=== PATIENT | female | born 2000 | race Caucasian/White ===

== ENCOUNTER 2021-06-04 07:31 | Outpatient (CLI) | payer OTHER, SELFPAY ==
--- NOTE | ~2021-06-04 | US_ITS ---
EXAMINATION: US right upper quadrant EXAM DATE: 06/04/2021 08:09 INDICATION: R10.13 - Epigastric pain TECHNIQUE: Multiple grayscale and Doppler images of the abdomen right upper quadrant were obtained (b y a technologist who performed the scan) and subsequently reviewed. There is no prior study for maddi mendoza. FINDINGS: The pancreatic head and body are normal in appearance. The pancreatic tail is not visualized. The l iver has normal echogenicity and contour. There are no focal liver lesions identified. There is no evidence of intrahepatic biliary duct dilation. Portal venous flow was seen in the hepatopedal, nor mal direction and has normal Doppler waveform. No right-sided hydronephrosis. Common bile duct measures 3 mm, which is normal. The gallbladder wall is normal in thickness, with ex pected amount of distention. No sonographic evidence of pericholecystic fluid. There is no cholelit hiases. Technologist performing exam reports patient did not demonstrate sonographic Salazar's sign. Please note that this sign is less reliable in patients who have received pain medication. IMPRESSION: 1. Unremarkable abdominal ultrasound exam. Reviewed, dictated and finalized at location B. TING MACHINE OPERATOR
== END 2021-06-04 07:32 | disposition home or self-care (01) ==
LOC: ANHIMG 07:36
PROVIDERS: PCP Internal Medicine; Visit Provider Physician Assistant
DX: R10.13 Epigastric pain (principal)
CPT/HCPCS: 76705

== ENCOUNTER 2021-10-18 16:38 | Outpatient (CLI) | payer OTHER, SELFPAY ==
[2021-10-18 17:29] LABS: Appearance Urine Clear (Clear); Bilirubin Urine Negative (Negative); Blood Urine Negative (Negative); Color Urine Yellow (Yellow); Glucose Urine UA Negative (Negative); Ketones Urine Negative (Negative); Leukocyte Esterase Ur Trace LEU/UL (NEGATIVE); Nitrate Urine Positive (Negative); Protein Urine Negative (Negative); Specific Grav Ur 1.015 (1.001-1.035); Urobilinogen Urine 0.2 mg/dL (<2.0); pH Urine 7.5 (5.0-9.0)
[2021-10-18 17:34] LABS: Bacteria Urine Trace /hpf; Mucus Urine Rare /lpf; RBC Urine 0-2 /hpf (0-2); Squamous Epithelial Cell Urine Few /hpf (Few)
[2021-10-18 17:35] LABS: Add Urine Microscopic? YES
== END 2021-10-18 16:39 | disposition home or self-care (01) ==
LOC: ANHLAB 16:41
PROVIDERS: PCP Internal Medicine; Visit Provider Physician Assistant
DX: R30.0 Dysuria (principal)
CPT/HCPCS: 81001; 87077; 87086; 87186

== ENCOUNTER → 2022-06-22 10:55 | Outpatient (CLI) | payer OTHER, SELFPAY ==
--- NOTE | ~2022-06-22 | US_ITS ---
Pelvic ultrasound. Clinical History: Pelvic pain Technique: Realtime transabdominal and transvaginal scanning of the pelvis was performed. Color flow Doppler and Doppler spectral analysis were performed. Findings: The uterus is anteverted. The endometrial stripe has a thickness of 3 mm. No focal mass is identified. The right ovary is not seen. No significant right ovarian or adnexal mass is seen. The left ovary measures 1.5 x 0.9 x 1.0 cm. No significant left ovarian or adnexal mass is seen. There is no evidence of free fluid in the cul de sac. Impression: Uterus and left ovary are unremarkable. Right ovary not seen. Reviewed, dictated and finalized at location . BORING CREW CHIEF Impression: Uterus and left ovary are unremarkable. Right ovary not seen.
== END ==
PROVIDERS: PCP Physician Assistant; Visit Provider Nurse Practitioner
DX: R10.2 Pelvic and perineal pain (principal)
CPT/HCPCS: 76830

== ENCOUNTER 2023-01-27 15:46 | Outpatient (CLI) | payer OTHER, SELFPAY ==
--- NOTE | ~2023-01-27 | US_ITS ---
EXAMINATION: US OB <= 14 weeks fetus DATE: 01/27/2023 16:04 INDICATION: First trimester dating and viability assessment. TECHNIQUE: Real-time pelvic transabdominal and transvaginal ultrasound was performed. COMPARISON: None. FINDINGS: The uterus measures 9.2 x 7.3 x 5.4 cm. There is an intrauterine gestational sac. A yolk sa c is identified. heart motion is identified measuring 183 beats per minute (bpm) by M-mode Dopp ler. The crown rump length measures 2.6 cm, which correlates with an estimated gestational age of 9 weeks and 3 day(s) (+/-) 6 day(s). The ovaries are not visualized however no adnexal abnormality is seen. There is no free fluid in the pelvis. IMPRESSION: 1. Live intrauterine with an estimated gestational age of 9 weeks and 3 day(s) (+/-) 6 day( s) and an estimated delivery date of 08/29/2023. Reviewed, dictated and finalized at location F. IMPRESSION: 1. Live intrauterine with an estimated gestational age of 9 weeks and 3 day(s) (+/-) 6 day(s) and an estimated delivery date of 08/29/2023.
== END 2023-01-27 15:47 ==
LOC: GOSHIMG 15:49
PROVIDERS: PCP Physician Assistant; Visit Provider Advanced Practice Midwife
DX: O36.80X0 Pregnancy with inconclusive fetal viability, not applicable or unspecified (principal); Z3A.09 9 weeks gestation of pregnancy
CPT/HCPCS: 76801

== ENCOUNTER 2023-04-04 15:22 | Outpatient (CLI) | payer OTHER, SELFPAY ==
--- NOTE | ~2023-04-04 | US_ITS ---
EXAMINATION: US OB /maternal detail DATE: 04/04/2023 16:01 INDICATION: Second trimester anatomic survey TECHNIQUE: Real-time ultrasound of the pelvis was performed. COMPARISON: None. FINDINGS: There is a single living fetus in breech presentation. The placenta is anterior and 4.7 cm from the i nternal cervical os. The measured cervical length is 2.8 cm. heart rate is 157 beats per minute (bpm). cardiac activity and movement are noted. The amniotic fluid index is subjectivel y normal. The following anatomy was identified as normal: 4 chamber heart 3 vessel cord cord insertion kidneys urinary bladder stomach spine diaphragm ventricles cisterna magna cerebellum The following biometric data were obtained: Biparietal diameter (BPD): 4.3 cm; head circumference (HC): 16.2 cm; abdominal circumference (AC): 14 .4 cm; femur length (FL): 3.2 cm. These measurements are concordant. Estimated weight is 307 g +/- 46 g, which correlates with the 84th percentile when 08/29/2023 is used as estimated date of delivery. As single measurements, these parameters are each equal to the following estimated gestational ages w ith ranges of +/- 2 standard deviations: BPD: 19 weeks 0 days +/- 1 weeks 5 days. HC: 19 weeks 0 days +/- 1 weeks 3 days. AC: 19 weeks 5 days +/- 2 weeks 0 days. FL: 19 weeks 6 days +/- 1 weeks 6 days. estimated gestational age based solely on measurements from this exam is 19 weeks 3 days +/- 1 weeks 3 days. IMPRESSION: 1. Single living fetus in breech presentation. 2. Estimated weight is 307 g +/- 46 g, which correlates with the 84th percentile when 08/29/2023 is used as estimated date of delivery. Reviewed, dictated and finalized at location F. OR PROJECT COORDINATOR IMPRESSION: 1. Single living fetus in breech presentation. 2. Estimated weight is 307 g +/- 46 g, which correlates with the 84th per centile when 08/29/2023 is used as estimated date of delivery.
== END 2023-04-04 15:23 ==
LOC: GOSHIMG 15:24
PROVIDERS: PCP Physician Assistant; Visit Provider Advanced Practice Midwife
DX: Z36.9 Encounter for antenatal screening, unspecified (principal); Z3A.19 19 weeks gestation of pregnancy
CPT/HCPCS: 76805

== ENCOUNTER 2023-05-23 20:03 | Observation (INO) | payer OTHER, SELFPAY ==
[2023-05-23] VITALS (11 sets, daily range): BP systolic 114–115; BP diastolic 65–68; PULSE 118–129; RESP 16; TEMP 36.9; O2SAT 97; BMI 22.8
--- NOTE | 2023-05-23 20:58 | PC.NURSE ---
Called Dr. Capone to update on pt, tracing, body aches, chills, decreased movement, and fatigue. Orders received to send pt to the ER to have testing done and start a D5LR fluid bolus.
--- NOTE | 2023-05-23 21:07 | PC.NURSE ---
Report given to Cristy Garland, ROSALIO in the Emergency Department. Dr. Capone transferring pt to ER after being assessed obstetrically due to illness symptoms.
--- NOTE | 2023-05-23 21:17 | OBADM ---
This patient, Juliane Carlin, admitted to the OB room OB Post 117 for observation. Patient/family oriented to hospital policies and general routines including ID bracelet, bed and alarms, visiting hours, pain management, procedures, bathroom and other care routines, personal items, smoking policy, room service/diet, and visiting hours. Patient/Family are encouraged to report perceived risks to care and to ask questions if they do not understand what they are told or what they should do.
--- NOTE | 2023-05-25 07:53 | PM.OBTRLD ---
OB - Triage/Final Diagnosis Visit Information Reason for evaluation: decreased movement and other ( COVID) Comments/Additional reasons for admission: I have assessed the risk for this patient, Juliane Carlin, and determined that she would benefit from observation care.
== END 2023-05-23 21:41 | disposition other institution (70) ==
PROVIDERS: Admitting Provider Obstetrics & Gynecology Gynecology; PCP Physician Assistant; Visit Provider Obstetrics & Gynecology Gynecology
DX: O36.8120 Decreased fetal movements, second trimester, not applicable or unspecified (principal); Z3A.26 26 weeks gestation of pregnancy
CPT/HCPCS: 59025; G0378; G0379

== ENCOUNTER 2023-05-23 21:43 | Emergency (ER) | payer OTHER, SELFPAY ==
[2023-05-23 21:57] VITALS: BP 121/72; PULSE 124; RESP 20; TEMP 36.5; O2SAT 98
[2023-05-23] MEDS: DEXTROSE 5%/LACTATED RINGERS 1,000 ML 999 ML IV CONT (23:14)
[2023-05-23] MEDS: METOCLOPRAMIDE HCL INJ 10 MG/2 ML VIAL IV PUSH (23:14)
[2023-05-23 23:21] LABS: Hemoglobin 10.4 g/dL (12.0-15.0); Mean Corpuscular HGB Conc 32.5 g/dl (32-36); Mean Corpuscular Hemoglobin 30.8 pg (26-34); Mean Corpuscular Volume 94.7 fl (80-100); Mean Platelet Volume 9.9 fl (7.4-10.4); Platelet Count Result 195 k/mm3 (150-375); Red Blood Count 3.38 M/mm3 (4.2-5.4); Red Cell Distribution Width 12.4 % (11.5-14.5); White Blood Count 7.8 K/mm3 (4.5-10.0)
[2023-05-23 23:31] LABS: Alanine Aminotransferase 30 U/L (6-35); Albumin Level 3.5 g/dL (3.5-5.1); Alkaline Phosphatase 62 U/L (38-126); Anion Gap 8 mmol/L (8-16); Aspartate Amino Transferase 45 U/L (14-36); Bilirubin,Total 0.3 mg/dL (0.2-1.3); Blood Urea Nitrogen 5 mg/dL (7-17); Calcium 8.5 mg/dL (8.4-10.2); Carbon Dioxide 23 mmol/L (22-30); Chloride 103 mmol/L (98-107); Estimated CRCL calculation 146 ml/min; Estimated Glomerular Filt Rate > 60; Glucose 82 mg/dL (65-110); Lipase 30 U/L (23-300); Potassium 3.7 mmol/L (3.4-5.0); Sodium 134 mmol/L (137-145)
[2023-05-23 23:34] VITALS: BP 105/56; PULSE 120; RESP 17; O2SAT 98
[2023-05-23 23:46] LABS: Appearance Urine Clear (Clear); Bilirubin Urine Negative (Negative); Blood Urine Negative (Negative); Color Urine Yellow (Yellow); Glucose Urine UA Negative (Negative); Ketones Urine Negative (Negative); Leukocyte Esterase Ur Negative LEU/UL (Negative); Nitrate Urine Negative (Negative); Protein Urine Negative (Negative); Urobilinogen Urine 0.2 mg/dL (<2.0); pH Urine 5.5 (5.0-9.0)
[2023-05-23 23:54] LABS: Band Neutrophils Percent 9 % (0-6); Lymphocytes Absolute Manual 0.39 K/mm3 (1.1-4.5); Lymphocytes Percent Manual 5 % (18-44); Monocytes Absolute Manual 0.39 K/mm3 (0.1-0.90); Monocytes Percent Manual 5 % (3-9); Neutrophils Absolute Manual 7.02 K/mm3 (1.7-7.2); Neutrophils Percent Manual 81 % (46-73); Platelet Estimate Adequate (Adequate); Total Cells Counted 100
[2023-05-23 23:55] LABS: Large Platelets Present; Schistocytes None Seen (NORMAL)
[2023-05-23 23:56] LABS: Add Urine Microscopic? NO
[2023-05-23 23:57] LABS: Influenza A QL RT-PCR Negative (Negative); Influenza B QL RT-PCR Negative (Negative); RSV RNA, RT-PCR Negative (Negative); SARS-CoV-2 RNA PCR Positive (Negative)
[2023-05-24] MEDS: SODIUM CHLORIDE 0.9% IV 1,000 ML 999 ML IV CONT (00:23)
[2023-05-24] MEDS: METOCLOPRAMIDE HCL INJ 10 MG/2 ML VIAL IV PUSH (00:25)
[2023-05-24 00:27] VITALS: BP 117/79; PULSE 133
[2023-05-24 00:28] VITALS: BP 106/66; BP 117/72; PULSE 130; PULSE 135
--- NOTE | 2023-05-24 01:09 | ECG_ITS ---
Measurements Intervals [place] Rate: 128 P: 53 AK: 151 QRS: 38 QRSD: 98 T: 30 QT: 279 QTc: 408 Interpretive Statements SINUS TACHYCARDIA INCOMPLETE RIGHT BUNDLE BRANCH BLOCK ST-T WAVE ABNORMALITY IN ANTEROLATERAL LEADS- CONSIDER ISCHEMIA ABNORMAL ECG BASELINE ARTIFACT- I, III, V6 NO PREVIOUS ECG AVAILABLE FOR COMPARISON Electronically Signed On 05-24-2023 5:34:05 [employer] CRM DEVELOPER by Dk Rogers D.O.
--- NOTE | 2023-05-24 01:31 | ED.GENADULT ---
HPI - General Adult General Chief complaint: Nausea/Vomiting/Diarrhea Stated complaint: flu symptoms Time Seen by Provider: 05/23/23 22:49 History of Present Illness HPI narrative: Patient is a 22-year-old female who presents emergency department with chief complaint of nausea and vomiting. Patient is approximately 26 weeks was seen over at OB I reports that she has had a difficult time keeping any fluids down Related Data Home Medications Medication Instructions Recorded Confirmed fexofenadine-pseudoephedrine ER 1 tablet PO DAILY 03/26/19 04/01/22 180 mg-240 mg tablet,ext.release 24 hr (Shea-D 24 Hour) levonorgestrel-ethinyl estradiol 1 tablet PO DAILY 03/26/19 04/01/22 0.1 mg-20 mcg tablet (Vienva) cholecalciferol (vitamin D3) 50 50 mcg PO DAILY 11/04/20 04/01/22 mcg (2,000 unit) capsule escitalopram oxalate 10 mg tablet 10 mg PO DAILY 11/04/20 04/01/22 (Lexapro) Allergies Allergy/AdvReac Type Severity Reaction Status Date / Time No Known Allergies Allergy Verified 05/23/23 22:02 Review of Systems Review of Systems: A 10 system review of systems was completed on the patient and is negative except for what is stated in the HPI. Nursing and ancillary documentation was reviewed. [facility] Family History Family History Mother Patient's mother is in good health Father Patient's father is in good health Social History Social History Smoking status: Never smoker Second hand tobacco smoke exposure: No Alcohol intake: never Lack of Transportation: No Lack of Food: Never True Current Housing: I Have Housing Concerned About Future Housing: No Difficulty Paying Gas/Electric Bills: No Difficulty Paying for Meds: No Currently Unemployed: No Education: Associate Degree Difficulty w/ Childcare or Family Care: No Exam Narrative: GENERAL: Well-appearing, well-nourished, and in no acute distress. HEAD: Normocephalic, atraumatic. EYES: PERRLA and EOMI. ENT: Nares clear, no rhinorrhea or epistaxis. Mucous membranes moist. NECK: Supple. CHEST: Clear to auscultation. No respiratory distress. HEART: Tachycardic rate and rhythm. No murmur heard. Normal peripheral pulses. ABDOMEN: Soft, nontender, nondistended, normal active bowel sounds. EXTREMITIES: Normal range of motion. No edema. SKIN: Warm, dry, no rash. NEURO: No focal deficits. Alert and oriented x3. PSYCH: Normal mood and affect. Course Vital Signs Vital signs: Vital Signs Temperature 36.5 C 05/23/23 21:57 Pulse Rate 124 H 05/23/23 21:57 Respiratory Rate 20 05/23/23 21:57 Blood Pressure 121/72 05/23/23 21:57 Pulse Oximetry 98 05/23/23 21:57 Oxygen Delivery Room Air 05/23/23 21:57 Temperature 36.5 C 05/23/23 21:57 Pulse Rate 135 H 05/24/23 00:28 Respiratory Rate 17 05/23/23 23:34 Blood Pressure 106/66 05/24/23 00:28 Pulse Oximetry 98 05/23/23 23:34 Oxygen Delivery Room Air 05/23/23 21:57 Medical Decision Making MDM Narrative Medical decision making narrative: Differential diagnosis includes viral syndrome, UTI, dehydration, hyperemesis Patient received fluid hydration in the emergency department and underwent laboratory CBC was within normal limits, CMP was within normal limits. Urinalysis showed no evidence UTI or protein in the urine. Patient was positive for COVID-19 Patient was offered Paxil 0 bid since she is showing more significant symptoms of COVID-19 after discussion with OBGYN. Vital Signs Vital Signs: Vital Signs Temperature 36.5 C 05/23/23 21:57 Pulse Rate 124 H 05/23/23 21:57 Respiratory Rate 20 05/23/23 21:57 Blood Pressure 121/72 05/23/23 21:57 Pulse Oximetry 98 05/23/23 21:57 Oxygen Delivery Room Air 05/23/23 21:57 Temperature 36.5 C 05/23/23 21:57 Pulse Rate 135 H
[2023-05-24 01:46] VITALS: BP 105/63; PULSE 130; RESP 14; O2SAT 99
== END 2023-05-24 01:47 | disposition home or self-care (01) ==
PROVIDERS: Emergency Provider Emergency Medicine; PCP Physician Assistant
DX: U07.1 COVID-19 (principal); R11.2 Nausea with vomiting, unspecified
CPT/HCPCS: 36415; 59025; 80053; 81003; 83690; 85025; 87637; 93005; 96361; 96374; 99284; G0378; G0379; J2765; J7030; J7121

== ENCOUNTER 2023-06-17 07:57 | Outpatient (CLI) | payer OTHER, SELFPAY ==
--- NOTE | 2023-06-17 07:58 | ECG_ITS ---
Measurements Intervals [place] Rate: 80 P: 10 NM: 135 QRS: 36 QRSD: 97 T: 26 QT: 347 QTc: 401 Interpretive Statements SINUS RHYTHM WITH SINUS ARRHYTHMIA Electronically Signed On 06-17-2023 12:35:22 CHIEF CONTRACT OFFICER by Torrey Gilbert M.D.
== END 2023-06-17 07:58 | disposition home or self-care (01) ==
LOC: ANHCARD 07:58
PROVIDERS: PCP Physician Assistant; Visit Provider Physician Assistant
DX: R94.31 Abnormal electrocardiogram [ECG] [EKG] (principal)
CPT/HCPCS: 93005

== ENCOUNTER 2023-06-29 15:38 | Outpatient (CLI) | payer OTHER, SELFPAY ==
--- NOTE | ~2023-06-29 | US_ITS ---
EXAMINATION: US OB follow up DATE: 06/29/2023 15:56 INDICATION: COVID during TECHNIQUE: Real-time ultrasound of the pelvis was performed. The interpreting radiologist was not pre sent for the study. COMPARISON: None. FINDINGS: There is a single living fetus in vertex presentation. The placenta is anterior and not low-lying. F etal heart rate is 136 beats per minute (bpm). The amniotic fluid index is 14.2 cm, which is normal (5th%-95%: 8.8-23.8 cm at 31 weeks estimated gestational age). The following biometric data were obtained: BPD: 8.1 cm -> 32 weeks 5 days Head circumference: 29.5 cm -> 32 weeks 4 days Abdominal circumference: 28.4 cm -> 32 weeks 3 days Femur length: 6.0 cm -> 31 weeks 3 days These measurements are concordant. Head circumference to abdominal circumference ratio: 1.04 (normal range 0.96-1.13). Estimated weight: 1913 g (+/-) 287 g or 4 lbs. 3 oz. (+/-) 10 oz. IMPRESSION: 1. Single living fetus in vertex presentation with heart rate of 136 bpm. 2. Normal amniotic fluid index of 14.2 cm. 3. Estimated weight is 68th percentile by Hadlock criteria when 08/29/2023 is used as the estima fabián date of delivery (RICA). Please correlate with clinical information or earlier ultrasounds for mos t accurate RICA. Reviewed, dictated and finalized at location A. KER OPERATOR IMPRESSION: 1. Single living fetus in vertex presentation with heart rate of 136 bpm. 2. Normal amniotic fluid index of 14.2 cm. 3. Estimated weight is 68th percentile by Hadlock criteria when 08/29/2023 is used as the estimated date of delivery (RICA). Please correlate with clinica l information or earlier ultrasounds for most accurate RICA.
== END 2023-06-29 15:39 ==
LOC: MICIMG 15:39
PROVIDERS: PCP Advanced Practice Midwife; Visit Provider Advanced Practice Midwife
DX: O98.519 Other viral diseases complicating pregnancy, unspecified trimester (principal); Z3A.00 Weeks of gestation of pregnancy not specified
CPT/HCPCS: 76816

== ENCOUNTER 2023-08-22 18:53 | Inpatient (IN) | payer OTHER, SELFPAY ==
--- NOTE | 2023-08-22 18:53 | LDADM ---
This patient, Juliane Carlin, was admitted to Labor/Delivery/Recovery 105 on 08/22/23 at 18:53. Plans for labor, pain management and were discussed with patient. Patient/family oriented to hospital policies and general routines including ID bracelet, bed and alarms, visiting hours, pain management, procedures, bathroom and other care routines, personal items, smoking policy, room service/diet and guest tray routines, infant security routines, and visiting hours. Patient/Family are encouraged to report perceived risks to care and to ask questions if they do not understand what they are told or what they should do. See OBIX for further documentation.
[2023-08-22 19:09] VITALS: BP 138/89; PULSE 104
[2023-08-22 19:16] VITALS: BP 129/77; PULSE 103
[2023-08-22 19:22] VITALS: TEMP 36.9
[2023-08-22 19:22] LABS: Basophils Percent Auto 0.4 % (0.2-1.2); Eosinophils Absolute Auto 0.2 K/mm3 (0-0.3); Eosinophils Percent Auto 1.9 % (0-4.4); Hematocrit 35.4 % (37.0-47.0); Hemoglobin 11.8 g/dL (12.0-15.0); Immature Granulocyte Absolute 0.05 K/mm3 (0.00-0.031); Immature Granulocyte Percent A 0.5 % (0-0.5); Lymphocytes Absolute Auto 2.36 K/mm3 (0.9-3.2); Lymphocytes Percent Auto 21.5 % (18.3-44.2); Mean Corpuscular HGB Conc 33.3 g/dl (32-36); Mean Corpuscular Volume 90.1 fl (80-100); Mean Platelet Volume 11.1 fl (7.4-10.4); Monocytes Absolute Auto 0.7 K/mm3 (0.1-0.6); Monocytes Percent Auto 6.5 % (2.6-8.5); Neutrophils Absolute Auto 7.6 K/mm3 (1.3-6.7); Neutrophils Percent Auto 69.2 % (45.5-73.1); Platelet Count Result 228 k/mm3 (150-375); Red Blood Count 3.93 M/mm3 (4.2-5.4); Red Cell Distribution Width 12.4 % (11.5-14.5)
[2023-08-22 19:31] VITALS: BP 134/81; PULSE 105
[2023-08-22 19:37] VITALS: BMI 25.7
[2023-08-22 19:46] VITALS: BP 129/89; PULSE 102
[2023-08-22 19:52] LABS: Anisocytosis 1+; Platelet Estimate Adequate (Adequate); Schistocytes None Seen
[2023-08-23] VITALS (92 sets, daily range): BP systolic 90–159; BP diastolic 54–128; PULSE 25–280; RESP 16; TEMP 36.2–37.6; O2SAT 83–100
[2023-08-23] MEDS: LACTATED RINGERS 1,000 ML 125 ML IV CONT ×2 (00:17→04:32)
[2023-08-23] MEDS: OXYTOCIN 30 UNITS/NS 500 ML 30 UNITS/500 ML BAG IV CONT (00:17)
[2023-08-23] MEDS: fentaNYL CITRATE INJ (*CRX) 100 MCG/2 ML VIAL 50 MCG IV PUSH ×2 (01:03→03:17)
[2023-08-23] MEDS: ONDANSETRON INJ 4 MG/2 ML VIAL IV PUSH (04:31)
[2023-08-23] MEDS: fentaNYL CITRATE INJ (*CRX) 100 MCG/2 ML VIAL IV PUSH (04:31)
--- NOTE | 2023-08-23 05:17 | WPDANESEPP ---
Anes - Eval Pre Procedure Procedure: labor epidural Date/Time: 08/23/23 05:17 Preop Diagnosis: pain during labor Pre Op Diagnosis: IOL Patient Data Age: 22 Gender: F Height: 1.6 m Weight: 66 kg Last Vital Signs Temp 36.4 C L 08/23/23 04:09 Pulse 144 H 08/23/23 05:15 BP 112/92 H 08/23/23 05:17 Pulse Ox 100 08/23/23 05:13 O2 Del Method Room Air 08/22/23 19:37 Allergies Allergy/AdvReac Type Severity Reaction Status Date / Time No Known Allergies Allergy Verified 08/02/23 14:16 Home Medications Medication Instructions Recorded Confirmed Type cholecalciferol (vitamin D3) 50 50 mcg PO DAILY 11/04/20 08/22/23 History mcg (2,000 unit) capsule escitalopram oxalate 10 mg tablet 10 mg PO DAILY 11/04/20 08/22/23 History (Lexapro) pantoprazole 20 mg tablet,delayed 20 mg PO QAM #90 tabs 06/06/23 08/22/23 Rx release [id number] fum 28 1 pkg PO DAILY 06/06/23 08/22/23 History mg-folic acid 800 mcg-dha 200 mg oral pack ( + DHA) aspirin 81 mg tablet 81 mg PO DAILY 08/02/23 08/22/23 History Laboratory Tests 08/22/23 19:17 WBC 11.0 H K/mm3 (4.5-10.0) RBC 3.93 L M/mm3 (4.2-5.4) Hgb 11.8 L g/dL (12.0-15.0) Hct 35.4 L % (37.0-47.0) MCV 90.1 fl (80-100) MCH 30.0 pg (26-34) MCHC 33.3 g/dl (32-36) RDW 12.4 % (11.5-14.5) Plt Count 228 k/mm3 (150-375) MPV 11.1 H fl (7.4-10.4) Immature Gran % (Auto) 0.5 % (0-0.5) Neut % (Auto) 69.2 % (45.5-73.1) Lymph % (Auto) 21.5 % (18.3-44.2) [place] % (Auto) 6.5 % (2.6-8.5) Eos % (Auto) 1.9 % (0-4.4) Baso % (Auto) 0.4 % (0.2-1.2) Lymph # (Auto) 2.36 K/mm3 (0.9-3.2) [place] # (Auto) 0.7 H K/mm3 (0.1-0.6) Eos # (Auto) 0.2 K/mm3 (0-0.3) Baso # (Auto) 0.0 K/mm3 (0.0-0.1) Abs Immat Gran (auto) 0.05 H K/mm3 (0.00-0.031) Absolute Neuts (auto) 7.6 H K/mm3 (1.3-6.7) Absolute Nucleated RBC 0.000 K/mm3 (0.0-0.012) Nucleated RBC % 0.0 % (0.0-0.2) Platelet Estimate Adequate (Adequate) Anisocytosis 1+ Schistocytes None seen RPR Pending Blood Type O Positive Antibody Screen Negative Patient hx anesthesia problems: none Family hx anesthesia problems: none Results Review: All pre-operative results and documents have been reviewed as part of the pre-operative evaluation. [facility], [facility] Past Medical History Medical History (Updated 08/23/23 @ 05:18 by Cristal Carrillo CRNA) IUP (intrauterine ), incidental Scoliosis Family History Family History (Updated 08/02/23 @ 14:29 by Kim Hartley RN) Mother Patient's mother is in good health Father Patient's father is in good health Diabetes mellitus Hypertension Grandparent Hypertension Grandparent Hypertension Grandparent Acute kidney failure Cerebrovascular accident Chronic obstructive pulmonary disease Social History Social History Smoking status: Never smoker Second hand tobacco smoke exposure: No Alcohol intake: never Substance use: never Do You Feel Safe in your Home?: Yes Lack of Transportation: No Lack of Food: Never True Current Housing: I Have Housing Concerned About Future Housing: No Difficulty Paying Gas/Electric Bills: No Difficulty Paying for Meds: No Currently Unemployed: No Education: Associate Degree Difficulty w/ Childcare or Family Care: No Spiritual care concerns: No Exam Day of Procedure 08/23/23 05:17
--- NOTE | 2023-08-23 07:38 | WPDOBADMIT ---
Obstetrics - Admit Note Admission Note: record reviewed. No pertinent additions to the history and/or any subsequent changes in the physical findings that are not consistent with the expected course of the were found. Additions to the history and/or subsequent changes in the physical findings follow. Pt arrived for IOL and was found to have spontaneous contractions. Her cervix made 1 cm of change but was unchanged at her next exam. Pitocin was then started.
--- NOTE | 2023-08-23 07:40 | PM.OBPNLAB ---
Pain Control Date/time seen: 08/23/23 07:25 CNM called at 0535 for update. Pt was last 5 cm per RN exam, having occasional variable decelerations, but otherwise overall reassuring tracing. SROM overnight of clear fluid. CNM at bedside at 0725. Pt feeling intermittent rectal pressure. Pain control: tolerating well and epidural Pelvic Exam Dilation (cm): 10 Effacement (%): 100 station: +2 Amniotic membrane status: Ruptured Contractions Monitor mode: External Contraction frequency: 3 (2-3) Contraction pattern: Regular Contraction phase: Contraction Contraction intensity: Strong/Firm Status status: Category ll Assessment and Plan Assessment: active labor Plan: continuous present management Comments: Pt found to be complete. Plan to begin pushing with ctx. Dr. Capone updated. Anticipate vaginal .
--- NOTE | 2023-08-23 07:43 | PM.OBPRVD ---
OB - Vaginal Delivery Note Procedure Delivery date: 08/23/23 Events: Elective Induction of Labor Induction method: Per Pitocin Protocol Delivery monitor: External FHT and External Uterine Route of delivery: Episiotomy description: None Laceration Description: Other (right hymenal ring. superficial) Delivery repair: vicryl Specimen: Yes (placenta) Quantitative Blood Loss (ml): 125 Anesthesia type: Epidural Disposition: Floor Complications: No immediate complications Narrative: Juliane arrived for induction of labor. She was found to have spontaneous contractions and made cervical change to 3 cm. After that there was no further cervical change Pitocin was started. She progressed to complete dilation and began pushing with contractions. She brought the head to complete crown and delivered it over intact perineum. There was minimal restitution at this point. There was gradual delivery of the anterior followed by the posterior shoulder. The 's body was gradually delivered and placed on the maternal abdomen and care was transferred to the nursery staff. After 1 minute of life, the cord was doubly clamped and cut. Cord blood, cord gases, and cord segment were obtained. The placenta delivered spontaneously and was found to have a small accessory lobe. otherwise appeared grossly intact. All delivery counts correct. There was excellent uterine tone. Mother may be skin to skin and delivery room. Baby Date of : 08/23/23 Time of : 08:11 Weeks of gestation at delivery: 39 Infant gender: Male Weight (pounds): 8 Weight (ounces): 3 presentation: vertex position: Right Occiput Anterior Placenta delivery description: Spontaneous and Abnormal Configuration (accessory lobe) Cord Vessel Description: 3 Vessels and Delayed Cord Clamping score one minute: 9 score five minutes: 9
--- NOTE | 2023-08-23 07:45 | PM.OBDSVD ---
DS: Admitting Diagnosis Discharge Date 08/24/[address] Logan Whittington <Nancy Tirado CNM - Last Filed: 08/29/23 07:34> 08/24/2023 <Aleks Whittington MD - Last Filed: 08/24/23 07:08> Admitting Diagnosis 22 y.o. at 39 weeks gestation IOL Anxiety Scoliosis Tachycardia Hx Covid infection in <Nancy Tirado CNM - Last Filed: 08/29/23 07:34> DS: Discharge Diagnosis Discharge Diagnosis (1) (normal spontaneous vaginal delivery): Code(s): O80 - Encounter for full-term uncomplicated delivery <aNncy Tirado CNM - Last Filed: 08/29/23 07:34> Status: Acute <Nancy Tirado CNM - Last Filed: 08/29/23 07:34> OB - DS: Summary Hospital Course Hospital Course: Uncomplicated <Nancy Tirado CNM - Last Filed: 08/29/23 07:34> OB Procedures : Ultrasound <Nancy Tirado CNM - Last Filed: 08/29/23 07:34> OB Procedures Intrapartum: Spontaneous Vag Delivery <Nancy Tirado CNM - Last Filed: 08/29/23 07:34> OB Procedures: : None <Nancy Tirado CNM - Last Filed: 08/29/23 07:34> Peripartum Data Infant Delivery Method: Natural Vaginal <Nancy Tirado CNM - Last Filed: 08/29/23 07:34> Laceration Description: Other (hymenal ring) <Nancy Tirado CNM - Last Filed: 08/29/23 07:34> Episiotomy description: None <Nancy Tirado CNM - Last Filed: 08/29/23 07:34> complications: none <Nancy Tirado CNM - Last Filed: 08/29/23 07:34> Time Spent with Patient Time attestation: Total time spent providing and/or coordinating discharge services: <Nnacy Tirado CNM - Last Filed: 08/29/23 07:34> DS: Data Data Completed and Pending Labs on day of discharge: Labs from last 24 hours 08/22/23 19:17 WBC 11.0 H RBC 3.93 L Hgb 11.8 L Hct 35.4 L MCV 90.1 MCH 30.0 MCHC 33.3 RDW 12.4 Plt Count 228 MPV 11.1 H Immature Gran % (Auto) 0.5 Neut % (Auto) 69.2 Lymph % (Auto) 21.5 [place] % (Auto) 6.5 Eos % (Auto) 1.9 Baso % (Auto) 0.4 Lymph # (Auto) 2.36 [place] # (Auto) 0.7 H Eos # (Auto) 0.2 Baso # (Auto) 0.0 Abs Immat Gran (auto) 0.05 H Absolute Neuts (auto) 7.6 H Absolute Nucleated RBC 0.000 Nucleated RBC % 0.0 Platelet Estimate Adequate Anisocytosis 1+ Schistocytes None seen RPR Pending Blood Type O Positive Antibody Screen Negative <Nancy Tirado CNM - Last Filed: 08/29/23 07:34> Discharge Plan Discharge Attending physician on discharge: Anna Marie Capone <Nancy Tirado CNM - Last Filed: 08/29/23 07:34> Anna Marie Capone <Aleks Whittington MD - Last Filed: 08/24/23 07:08> Consulting providers: Nancy Tirado; Cristal Carrillo; Farhat Kate <Nancy Tirado CNM - Last Filed: 08/29/23 07:34> Discharging Clinician: Anna Marie Capone <Nancy Tirado CNM - Last Filed: 08/29/23 07:34> Anna Marie Capone <Aleks Whittington MD - Last Filed: 08/24/23 07:08> Patient Disposition: Home, Self-Care <Nancy Tirado CNM - Last Filed: 08/29/23 07:34> Activity: may shower and pelvic rest <Nancy Tirado CNM - Last Filed: 08/29/23 07:34> may shower and pelvic rest <Aleks Whittington MD - Last Filed: 08/24/23 07:08> Diet: as tolerated and regular <Nancy Tirado CNM - Last Filed: 08/29/23 07:34> as tolerated and regular <Aleks Whittington MD - Last Filed: 08/24/23 07:08> Wound Care Instructions: follow printed instructions <Nancy Tirado CNM - Last Filed: 08/29/23 07:34> follow printed instructions <Aleks Whittington MD - Last Filed: 08/24/23 07:08> Discharge Instructions: Education: Mom and Baby Guide Given to: Mother Follow-Up: Call your delivering provider's office for an appointment to be seen in: call doctor's office and make an appointment Mom and baby should come
[2023-08-23] MEDS: WITCH HAZEL 40 PADS 1 PAD TOPICAL (10:45)
[2023-08-23] MEDS: BENZOCAINE 20% AER SPR (*SP) 56 GM CAN 1 SPRAY TOPICAL (10:45)
[2023-08-23] MEDS: IBUPROFEN 600 MG TABLET PO ×2 (11:03→17:40)
[2023-08-23 14:40] LABS: Rapid Plasma Reagin Non-Reactive (NonReactive)
[2023-08-24 04:31] VITALS: BP 142/89; PULSE 80; RESP 20; TEMP 36.6; O2SAT 99
[2023-08-24 05:29] LABS: Hemoglobin 10.5 g/dL (12.0-15.0)
--- NOTE | 2023-08-24 06:57 | P.PNOB_ITS ---
OB - PN: Subj Subjective Date/time seen: 08/24/23 06:57 Patient comments: no complaints and pain well controlled baby status: doing well OB - PN: Obj Data Labs 08/24/23 03:56 Labs: Laboratory Results - last 24 hr 08/22/23 08/24/23 19:17 03:56 Hgb 10.5 L Hct 32.0 L RPR Non-reactive OB - PN A/P Plan day: 1 Plan: routine care Time Spent With Patient Time: Total time spent is greater than 50% in coordination of care (as documented) at patient's floor/unit and/or counseling patient: Time with patient: less than 15 minutes Exam Const: General: cooperative, healthy appearing and comfortable Nutritional Appearance: average body habitus Orientation/consciousness: oriented to person, oriented to place and oriented to time Resp: Effort & Inspection: normal respiratory effort Cardio: Rate: regular rate Rhythm: regular rhythm Heart sounds: S1 n ormal heart sound present and S2 normal heart sound present GI: Inspection: normal to inspection
[2023-08-24 07:50] VITALS: BP 137/96; PULSE 97; RESP 16; TEMP 36.8
[2023-08-24] MEDS: DOCUSATE SODIUM 100 MG CAPSULE PO (07:50)
[2023-08-24] MEDS: IBUPROFEN 600 MG TABLET PO (07:51)
--- NOTE | 2023-08-24 08:02 | WPDANLDPN2 ---
Anes-Prog Note L&D Date/Time: 08/24/23 08:02 Comfortable throughout: labor and delivery Neuraxial method: epidural Epidural/Spinal procedure site: clean & non-tender Neuro status: Neuro function grossly intact. Cardiovascular status: normal Respiratory status: normal Airway patency: baseline Mental status: baseline Post-Op hydration status: normal Vital Signs: Last Vital Signs Temp 36.6 C 08/24/23 04:31 Pulse 80 08/24/23 04:31 Resp 20 08/24/23 04:31 BP 142/89 H 08/24/23 04:31 Pulse Ox 99 08/24/23 04:31 O2 Del Method Room Air 08/23/23 19:00 Pain score (VAS): 2/10 I/O: Intake & Output 08/23/23 08/24/23 08/24/23 23:59 07:59 15:59 Intake Total 240 Balance 240 Post-procedural complaints: none Patient feedback: Patient satisfied with anesthetic care.
[2023-08-25 08:41] VITALS: BP 131/86; PULSE 71; RESP 18; TEMP 37; O2SAT 100
== END 2023-08-24 11:25 | disposition home or self-care (01) | DRG 807 ==
LOC: ANHLDR 08-23 07:46 → ANHOB2 08-24 07:06 → ANHLDR 08-25 08:29 → ANHOB2 08-25 08:29
PROVIDERS: Advanced Practice Midwife; Admitting Provider Obstetrics & Gynecology Gynecology; Visit Provider Obstetrics & Gynecology
DX: O43.193 Other malformation of placenta, third trimester (principal); Z37.0 Single live birth; Z3A.39 39 weeks gestation of pregnancy; O70.0 First degree perineal laceration during delivery; O36.8330 Maternal care for abnormalities of the fetal heart rate or rhythm, third trimester, not applicable or unspecified; Z86.16 Personal history of COVID-19
CPT/HCPCS: 36415; 85014; 85018; 85025; 86592; 86850; 86900; 86901; 88307; A9270; J2405; J2590; J2795; J3010; J7120

== ENCOUNTER 2023-10-26 10:09 | Outpatient (CLI) | payer OTHER, SELFPAY ==
--- NOTE | ~2023-10-26 | US_ITS ---
EXAMINATION: US soft tissue head and neck DATE: 10/26/2023 10:36 INDICATION: Enlarged submandibular lymph node TECHNIQUE: Multiple grayscale and Doppler ultrasound images of the region of concern at the right nec k were obtained. COMPARISON: None FINDINGS: Indeterminate 2.3 x 1.7 x 0.9 cm ovoid very hypoechoic mass, unclear whether solid or cystic with a f ew linear internal septations in the subcutaneous tissues at the region of concern. Deep to the ovoid lesion of concern are a few normal-sized right jugular chain lymph nodes measuring up to 4 mm in max imal short axis diameter. IMPRESSION: 1. 2.3 x 1.7 x 0.9 cm indeterminate very hypoechoic mass at the region of concern. Differential would include mildly enlarged lymph node, lipoma or other neoplasm either benign or malignant. Would recom mend contrast-enhanced neck CT for further evaluation. This may require core needle biopsy for defini tive determination. Reviewed, dictated and finalized at location A. IMPRESSION: 1. 2.3 x 1.7 x 0.9 cm indeterminate very hypoechoic mass at the region of kyle rn. Differential would include mildly enlarged lymph node, lipoma or other neop lasm either benign or malignant. Would recommend contrast-enhanced neck CT for further evaluation. This may require core needle biopsy for definitive determin ation.
== END 2023-10-26 10:10 ==
LOC: MICIMG 10:10
PROVIDERS: PCP Physician Assistant; Visit Provider Advanced Practice Midwife
DX: R59.0 Localized enlarged lymph nodes (principal)
CPT/HCPCS: 76536

== ENCOUNTER 2023-11-02 14:44 | Outpatient (CLI) | payer OTHER, SELFPAY ==
--- NOTE | ~2023-11-02 | CT_ITS ---
EXAMINATION: CT soft tissue neck w con DATE: 11/02/2023 15:39 INDICATION: Enlarged lymph nodes. TECHNIQUE: Computed tomography (CT) of the neck was performed with 75 mL Omnipaque-350 intravenous co ntrast. Automated exposure control and iterative reconstruction technique were employed. The dose-tyler gth product was 242.76 mGy-cm. COMPARISON: Ultrasound 10/26/2023 FINDINGS: There are no pathologically enlarged lymph nodes. The cervical carotid arteries are normal. The pharynx and larynx are normal. There is mild mucosal thickening in left maxillary sinus. The mas toid air cells are normal. There are periapical lucencies around tooth 9. IMPRESSION: 1. No abnormal lymphadenopathy. Reviewed, dictated and finalized at location A.
== END 2023-11-02 14:45 | disposition home or self-care (01) ==
LOC: ANHIMG 14:51
PROVIDERS: PCP Physician Assistant; Visit Provider Obstetrics & Gynecology Gynecology
DX: M54.50 Low back pain, unspecified (principal)
CPT/HCPCS: 70491; Q9967